=== PATIENT | male | born 1975 | race American Indian/Alaskan Native ===

== ENCOUNTER 2021-06-11 05:10 | Observation (INO) | payer SELFPAY ==
--- NOTE | 2021-06-11 05:51 | XRay Report ---
CHEST 1 VIEW INDICATION: chest pain. COMPARISON: None. FINDINGS: Support devices: None. Heart: Normal. Lungs/Pleura: No acute pulmonary or pleural findings. IMPRESSION: 1. No acute findings. Signer Name: Osvaldo Roach MD Signed: 06/11/2021 5:46 AM Workstation Name: [id number]
--- NOTE | 2021-06-11 06:13 | Event Note ---
ED Screening Note Date of service: 06/11/21 Time: 05:25 ED Screening Note: Patient is a 45-year-old -[place] male with a history of tobacco abuse who presents to the ED with left-sided chest pain that radiates to the left arm for the last 3 hours. Patient states that he was laying on the couch when he started having the symptoms and that the symptoms have been persistent and intermittent. Patient denies dizziness, syncope, shortness of breath, fall, traumatic injury, heavy lifting, nausea and vomiting, abdominal pain, neck pain, lightheadedness, headache, cough or fever and chills. This initial assessment/diagnostic orders/clinical plan/treatment(s) is/are subject to change based on patients health status, clinical progression and re- assessment by fellow clinical providers in the ED. Further treatment and workup at subsequent clinical providers discretion. Patient/guardian urged not to elope from the ED as their condition may be serious if not clinically assessed and managed. Initial orders include: CBC, CMP, troponin, EKG, chest x-ray
[2021-06-11 06:43] LABS: Basophils % (Auto) 0.5 % (0.0-1.8); Eosinophils # (Auto) 0.1 K/mm3 (0.0-0.4); Eosinophils % (Auto) 0.7 % (0.0-4.3); Hematocrit 44.1 % (35.5-45.6); Hemoglobin 14.9 gm/dl (11.8-15.2); Lymphocytes # (Auto) 2.7 K/mm3 (1.2-5.4); Lymphocytes % (Auto) 27.6 % (13.4-35.0); Mean Corpuscular HGB Conc 34 % (32-34); Mean Corpuscular Volume 98 fl (84-94); Monocytes # (Auto) 0.8 K/mm3 (0.0-0.8); Monocytes % (Auto) 8.3 % (0.0-7.3); Platelet Count 301 K/mm3 (140-440); Red Blood Count 4.51 M/mm3 (3.65-5.03); Red Cell Distribution Width 15.9 % (13.2-15.2)
[2021-06-11 06:50] LABS: Alanine Aminotransferase 19 units/L (7-56); Albumin 4.4 g/dL (3.9-5); BUN/Creatinine Ratio 11; Blood Urea Nitrogen 16 mg/dL (9-20); Calcium 9.3 mg/dL (8.4-10.2); Hemolysis Index 1
[2021-06-11] MEDS ORDERED: SODIUM CHLORIDE 0.9% 500 ML 500 ML IV ONE ×2 (07:07→10:36)
[2021-06-11] MEDS ORDERED: NITROGLYCERIN 0.4 MG TAB SUBL SL ONE ×2 (07:07→10:37)
[2021-06-11] MEDS ORDERED: hydrALAZINE 20 MG/1 ML INJ IV ONE ×2 (07:17→10:37)
--- NOTE | 2021-06-11 07:17 | Emergency Department Report ---
ED General Adult HPI - General Chief complaint: Dyspnea/Respdistress Stated complaint: Chest pain, left arm numbness PUI?: No Time Seen by Provider: 06/11/21 06:30 Source: patient, RN notes reviewed Mode of arrival: Ambulatory Limitations: No Limitations - History of Present Illness Initial comments: The patient was evaluated in the emergency department for symptoms described in the history of present illness. He/she was evaluated in the context of the global COVID-19 pandemic, which necessitated consideration that the patient might be at risk for infection with the virus that causes COVID-19. Institutional protocols and algorithms that pertain to the evaluation of patients at risk for COVID-19 are in a state of rapid change based on information released by regulatory bodies including the CDC and federal and state organizations. These policies and algorithms were followed during the patient's care in the emergency department. Please note that these policies, procedures and recommendations changed on a rapid basis. The patient is a 45-year-old gentleman who is not known to myself previously. He does not have a primary care doctor. He smokes tobacco, black in miles, but does not know if he has any chronic medical conditions. He presents to the ER today with complaint of left-sided chest pressure which moved to his left upper extremity. He also describes nausea, shortness of breath, and left upper ext remity numbness. He denies weakness. This is now resolved. Patient currently denies headache, neck pain, thoracic pain, abdominal pain, lower back pain, focal extremity weakness. He denies Covid symptomatology. He reports that he is up-to-date with COVID-19 vaccinations. No travel, surgery, immobilization, leg pain or leg swelling. No pertinent family history that he is aware of. Has not taken aspirin recently. Does not have a formal history of hypertension that he is aware of. -: Sudden, hour(s) Location: chest Radiation: extremity Quality: aching Consistency: now resolved Improves with: none Worsens with: none - Related Data Allergies Allergy/AdvReac Type Severity Reaction Status Date / Time No Known Allergies Allergy Unverified 06/11/21 10:31 ED Review of Systems ROS: Stated complaint: CHEST TIGHTNESS Other details as noted in HPI Constitutional: denies: fever Eyes: denies: eye discharge ENT: denies: epistaxis Respiratory: shortness of breath Cardiovascular: chest pain Gastrointestinal: nausea. denies: abdominal pain Genitourinary: denies: dysuria Musculoskeletal: denies: back pain Neurological: numbness. denies: weakness Hematological/Lymphatic: denies: easy bleeding ED Physical Exam - General Limitations: No Limitations General appearance: alert, in no apparent distress - Head Head exam: Present: atraumatic, normocephalic - Eye Eye exam: Present: normal appearance, EOMI. Absent: nystagmus - ENT ENT exam: Present: normal exam, normal orophraynx, mucous membranes moist, normal external ear exam - Neck Neck exam: Present: normal inspection, full ROM. Absent: tenderness, meningismus - Respiratory Respiratory exam: Present: normal lung sounds bilaterally. Absent: respiratory distress, wheezes, rales, rhonchi, stridor - Cardiovascular Cardiovascular Exam: Present: regular rate, normal rhythm, systolic murmur (Prom inent systolic click.). Absent: bradycardia, tachycardia, irregular rhythm, diastolic murmur, rubs, gallop - GI/Abdominal GI/Abdominal exam: Present: soft. Absent: distended, tenderness, guarding, rebound, rigid, pulsatile mass - Rectal Rectal exam: Present: deferred - Extremities Exam Extremities exam: Present: normal inspection, full ROM, other (2+ pulses noted in the bilateral upper and lower extremities. There is no palpable cord. negative Homans sign. Muscular compartments are soft. The pelvis is stable.). Absent: pedal edema, calf tenderness - Back Exam Back exam: Present: normal inspection. Absent: tenderness, CVA tenderness (R), CVA tenderness (L), paraspinal tenderness, vertebral tenderness - Neurological Exam Neurological exam: Present: alert, oriented X3, other (No facial droop. Tongue midline. Extraocular movements intact bilaterally. Facial sensation intact to light touch in V1, V2, V3 distribution bilaterally. 5 and a 5 strength in 4 extremities. Sensation intact to light touch in 4 extremities.). Absent: motor sensory deficit - Psychiatric Psychiatric exam: Present: normal affect, normal mood - Skin Skin exam: Present: warm, dry, intact, normal color. Absent: rash ED Course Vital Signs 06/11/21 06/11/21 06/11/21 05:15 10:35 13:24 Temperature 97.9 F Pulse Rate 67 73 Respiratory 19 18 Rate Blood Pressure 192/111 Blood Pressure 184/122 [Right] O2 Sat by Pulse 98 98 100 Oximetry 06/11/21 06/11/21 06/11/21 13:31 14:31 14:41 Temperature Pulse Rate 100 H 62 60 Respiratory 16 22 20 Rate Blood Pressure 154/92 154/92 Blood Pressure 157/80 [Right] O2 Sat by Pulse 100 100 99 Oximetry 06/11/21 06/11/21 06/11/21 14:51 15:01 15:11 Temperature Pulse Rate 62 64 70 Respiratory 17 16 16 Rate Blood Pressure 154/92 150/79 150/79 Blood Pressure [Right] O2 Sat by Pulse 99 100 100 Oximetry 06/11/21 06/11/21 06/11/21 15:21 15:31 15:41 Temperature Pulse Rate 92 H 59 L 83 Respiratory 15 15 14 Rate Blood Pressure 150/79 161/77 161/77 Blood Pressure [Right] O2 Sat by Pulse 100 99 100 Oximetry 06/11/21 06/11/21 06/11/21 15:51 16:01 16:11 Temperature Pulse Rate 62 56 L 59 L Respiratory 18 9 L 17 Rate Blood Pressure 160/89 160/89 160/89 Blood Pressure [Right] O2 Sat by Pulse 99 100 98 Oximetry 06/11/21 06/11/21 06/11/21 16:21 16:31 16:41 Temperature Pulse Rate 62 87 57 L Respiratory 21 11 L 18 Rate Blood Pressure 160/89 149/78 149/78 Blood Pressure [Right] O2 Sat by Pulse 97 100 100 Oximetry 06/11/21 06/11/21 06/11/21 16:51 17:01 17:11 Temperature Pulse Rate 60 76 61 Respiratory 20 19 17 Rate Blood Pressure 149/78 173/97 173/97 Blood Pressure [Right] O2 Sat by Pulse 99 99 100 Oximetry 06/11/21 06/11/21 06/11/21 17:21 17:31 17:41 Temperature Pulse Rate 108 H 59 L 59 L Respiratory 15 21 21 Rate Blood Pressure 173/97 172/93 172/93 Blood Pressure [Right] O2 Sat by Pulse 99 99 97 Oximetry 06/11/21 06/11/21 06/11/21 17:51 18:01 18:08 Temperature Pulse Rate 58 L 98 H 98 H Respiratory 12 15 16 Rate Blood Pressure 172/93 156/123 Blood Pressure 151/70 [Right] O2 Sat by Pulse 100 100 100 Oximetry 06/11/21 06/11/21 06/11/21 18:11 18:21 18:31 Temperature Pulse Rate 103 H 73 57 L Respiratory 13 20 12 Rate Blood Pressure 151/70 151/70 139/73 Blood Pressure [Right] O2 Sat by Pulse 100 100 100 Oximetry 06/11/21 06/11/21 06/11/21 18:41 18:51 19:01 Temperature Pulse Rate 109 H 59 L 61 Respiratory 13 16 20 Rate Blood Pressure 139/73 139/73 163/103 Blood Pressure [Right] O2 Sat by Pulse 100 98 98 Oximetry 06/11/21 06/11/21 06/11/21 19:11 19:21 19:31 Temperature Pulse Rate 57 L 98 H 61 Respiratory 21 19 22 Rate Blood Pressure 139/73 139/73 161/84 Blood Pressure [Right] O2 Sat by Pulse 100 98 98 Oximetry 06/11/21 06/11/21 06/11/21 19:41 19:51 20:00 Temperature Pulse Rate 85 60 99 H Respiratory 11 L 19 16 Rate Blood Pressure 163/103 163/103 Blood Pressure 178/91 [Right] O2 Sat by Pulse 100 99 99 Oximetry 06/11/21 06/11/21 06/11/21 20:01 20:11 20:21 Temperature Pulse Rate 59 L 94 H 94 H Respiratory 19 19 14 Rate Blood Pressure 160/80 160/80 160/80 Blood Pressure [Right] O2 Sat by Pulse 98 98 99 Oximetry 06/11/21 06/11/21 06/11/21 20:31 20:41 20:51 Temperature Pulse Rate 68 59 L 59 L Respiratory 11 L 20 19 Rate Blood Pressure 167/94 167/94 167/94 Blood Pressure [Right] O2 Sat by Pulse 100 97 99 Oximetry 06/11/21 06/11/21 06/11/21 21:01 21:10 21:21 Temperature Pulse Rate 77 58 L 57 L Respiratory 19 18 20 Rate Blood Pressure 178/94 178/94 178/94 Blood Pressure [Right] O2 Sat by Pulse 98 99 99 Oximetry 06/11/21 06/11/21 06/11/21 21:31 21:41 21:51 Temperature Pulse Rate 62 61 62 Respiratory 16 22 21 Rate Blood Pressure 157/78 178/94 157/78 Blood Pressure [Right] O2 Sat by Pulse 96 98 98 Oximetry 06/11/21 06/11/21 06/11/21 22:00 22:01 22:07 Temperature Pulse Rate 62 99 H Respiratory 22 Rate Blood Pressure 174/96 178/91 Blood Pressure [Right] O2 Sat by Pulse 100 98 Oximetry 06/11/21 06/11/21 06/11/21 22:11 22:21 22:31 Temperature Pulse Rate 97 H 74 77 Respiratory 17 12 14 Rate Blood Pressure 174/96 178/91 160/96 Blood Pressure [Right] O2 Sat by Pulse 100 100 100 Oximetry 06/11/21 06/12/21 06/12/21 23:37 02:00 03:52 Temperature 98.4 F 98.7 F Pulse Rate 69 69 60 Respiratory 17 18 Rate Blood Pressure 162/101 150/82 Blood Pressure [Right] O2 Sat by Pulse 97 98 Oximetry 06/12/21 04:03 Temperature Pulse Rate Respiratory 20 Rate Blood Pressure Blood Pressure [Right] O2 Sat by Pulse Oximetry - Reevaluation(s) Reevaluation #1: 06/11/21 07:16 Differential diagnosis, including but not limited to: GERD, gastritis, hiatal hernia, pneumonia, TIA, aortic disease, coronary artery disease Assessment and plan: 45-year-old gentleman, who is not currently tachycardic, tachypneic or hypoxic, who denies DVT and pulmonary embolism risk factors, who is low risk by Wells criteria for pulmonary embolism, who is PERC negative, who is moderate risk for major adverse cardiac event as per heart score, with chest pain, left arm numbness which is now resolved, and prominent systolic click. He has a GCS of 15, and an NIH score of 0 at this time. Treat patient's pain, obt ain CT scan of the brain, and CT angiogram head and neck to evaluate aortic arch, and proximal aortic arterial anatomy. Have recommended admission to the medical service for cardiac risk ratification as well as TIA evaluation. Patient states he is amenable to further diagnostic work-up, but he is uncertain if he would like to be admitted. He currently presents as awake, alert, oriented, sober, of sound mind, and exhibits decision-making capacity. Reassess after CT scan has resulted. 06/11/21 10:14 CT head, CT angiogram head and neck negative for acute findings. Patient feels improved. His repeat neurologic examination is unchanged. He is agreeable to admission for cardiac risk ratification, and TIA work-up/evaluation. Seen, Dr. Hernandez to admit patient to the medical service. - Consultations Consultation #1: 06/11/21 11:54 Discussed history, physical, laboratory studies, imaging studies and overall plan of care with cardiology on-call, Dr. Aguilar His group will follow in consultation. We specifically discussed initiation of Plavix, and systemic anticoagulation, however, the patient is chest pain-free at this time. It is recommended that we not initiate Plavix for systemic anticoagulation at this time, cardiology will follow in consultation and make further recommendations. ED Medical Decision Making - Lab Data Result diagrams: 06/12/21 05:12 06/12/21 05:12 Vital Signs 06/11/21 05:15 Temperature 97.9 F Pulse Rate 67 Respiratory 19 Rate Blood Pressure 192/111 O2 Sat by Pulse 98 Oximetry Lab Results 06/11/21 06/11/21 Range/Units 06:00 06:00 WBC 9.9 (4.5-11.0) K/mm3 RBC 4.51 (3.65-5.03) M/mm3 Hgb 14.9 (11.8-15.2) gm/dl Hct 44.1 (35.5-45.6) % MCV 98 H (84-94) fl MCH 33 H (28-32) pg MCHC 34 (32-34) % RDW 15.9 H (13.2-15.2) % Plt Count 301 (140-440) K/mm3 Lymph % (Auto) 27.6 (13.4-35.0) % [place] % (Auto) 8.3 H (0.0-7.3) % Eos % (Auto) 0.7 (0.0-4.3) % Baso % (Auto) 0.5 (0.0-1.8) % Lymph # (Auto) 2.7 (1.2-5.4) K/mm3 [place] # (Auto) 0.8 (0.0-0.8) K/mm3 Eos # (Auto) 0.1 (0.0-0.4) K/mm3 Baso # (Auto) 0.0 (0.0-0.1) K/mm3 Seg Neutrophils % 62.9 (40.0-70.0) % Seg Neutrophils # 6.2 (1.8-7.7) K/mm3 Sodium 143 (137-145) mmol/L Potassium 4.0 (3.6-5.0) mmol/L Chloride 104.8 (98-107) mmol/L Carbon Dioxide 29 (22-30) mmol/L Anion Gap 13 mmol/L BUN 16 (9-20) mg/dL Creatinine 1.5 H (0.8-1.3) mg/dL Estimated GFR > 60 ml/min BUN/Creatinine Ratio 11 % Glucose 124 H (75-100) mg/dL Calcium 9.3 (8.4-10.2) mg/dL Total Bilirubin < 0.20 (0.1-1.2) mg/dL AST 19 (5-40) units/L ALT 19 (7-56) units/L Alkaline Phosphatase 153 H (35-129) units/L Troponin T < 0.010 (0.00-0.029) ng/mL Total Protein 7.1 (6.3-8.2) g/dL Albumin 4.4 (3.9-5) g/dL Albumin/Globulin Ratio 1.6 % - EKG Data -: EKG Interpreted by Al EKG shows normal: sinus rhythm - EKG Data When compared to previous EKG there are: previous EKG unavailable 06/11/21 07:15 EKG interpreted at 05: 30 7 AM Sinus rhythm, 68 bpm. Normal axis, normal intervals, high left ventricular voltage. Abnormal EKG. Not a STEMI. - Radiology Data Radiology results: pending, report reviewed, image reviewed CHEST 1 VIEW INDICATION: chest pain. COMPARISON: None. FINDINGS: Support devices: None. Heart: Normal. Lungs/Pleura: No acute pulmonary or pleural findings. IMPRESSION: 1. No acute findings. Signer Name: Osvaldo Roach MD Signed: 06/11/2021 4:46 AM Workstation Name: [id number] INDICATION: left arm numbness. TECHNIQUE: Routine CT head without contrast. Sagittal and coronal reformatted images were obtained. All CT scans at this location are performed using CT dose reduction for ALARA by means of automated exposure control. COMPARISON: None. FINDINGS: BRAIN / INTRACRANIAL CONTENTS: Hemorrhage:No intracranial hemorrhage; no subarachnoid hemorrhage Stroke mimics: No subdural or epidural hematoma or space taking lesion Acute/subacute territorial infarction: Sterling-white matter interface: No blurring; normal Insular cortex: Normal Basal ganglia: Normal Wedge shaped parenchymal low density area: Not present Cortical sulci: Not effaced Lacunar infarctions: No acute lacunae Vasculopathy: Dense middle cerebral artery sign: Bilateral left middle cerebral artery has increased attenuation, in this CTA, both middle cerebral arteries are patent and normal Internal carotid artery terminus: Normal Basilar artery:Normal Middle cerebral artery branches in the sylvian fissure (Dot sign): Branches of the middle cerebral artery appear normal in the CTA Calcified embolus: Not present ASPECT score: 10 Chronic lesions:None White matter: Craniocervical junction:No significant abnormality Orbits:No significant abnormality Paranasal sinuses/mastoids:No significant abnormality Additional findings: None IMPRESSION: No acute subacute infarction This exam was performed as part of a code stroke protocol. The exam was completed at [facility] on 06/11/2021 8:04 AM. The exam was reviewed at 8:14 AM and ER physician was notified at . Signer Name: Deandra Vuong MD Signed: 06/11/2021 8:16 AM Workstation Name: [id number] CTA NECK WITH CONTRAST HISTORY: Left arm numbness COMPARISON: None. TECHNIQUE: Routine CTA of the neck was performed. 3-D/MIP reformats were postprocessed. Percentage stenosis is determined by direct quantitative measurements of diseased internal carotid artery diameter compared with normal distal internal carotid artery reference segments or by criteria similar to NASCET where applicable.All CT scans at this location are performed using CT dose reduction for ALARA by means of automated exposure control CONTRAST: 100 ml of Omnipaque 370 FINDINGS: Aortic arch: Aortic arch and left common carotid artery normal arising from the aorta; no artifactual due to venous contamination obscuring the details, proximal innominate artery left common carotid artery appear normal. Cervical vertebral arteries: Right vertebral artery normal from its origin up to intradural segment; left vertebral origin is not seen well (due to venous contamination) right the rest of the left vertebral artery is normal. Common carotid arteries: No significant abnormality. Carotid bifurcations: Normal Cervical internal carotid arteries: No significant abnormality. Additional findings: None. IMPRESSION: 1. No significant abnormality. Signer Name: Deandra Vuong MD Signed: 06/11/2021 8:28 AM Workstation Name: [id number] CTA HEAD WITH CONTRAST HISTORY: Left arm numbness COMPARISON: None. TECHNIQUE: Routine non-contrast CT Head, CTA of the head and post-contrast CT Head are performed. 3-D/MIP reformats postprocessed. All CT scans at this location are performed using CT dose reduction for ALARA by means of automated exposure control CONTRAST: 100 ml of Omnipaque 370 FINDINGS: CTA Head: Intracranial vertebral arteries: Right vertebral artery is the dominant artery and continues as basilar artery; left vertebral artery ends in the left PICA Basilar artery: No significant abnormality. Posterior cerebral arteries: No significant abnormality. Intracranial internal carotid arteries: No significant abnormality. Internal carotid artery is slightly larger than the right side the right internal carotid artery is patent from skull base to terminus Anterior cerebral arteries: The A1 segment supplies both A2 segments; right T1 segment is hypoplastic Middle cerebral arteries: No significant abnormality. Dural venous sinuses:Not optimally opacified. No significant abnormality. Additional findings: None. IMPRESSION: 1. No significant abnormality. Signer Name: Deandra Vuong MD Signed: 06/11/2021 8:35 AM Workstation Name: [id number] Critical care attestation.: If time is entered above; I have spent that time in minutes in the direct care of this critically ill patient, excluding procedure time. ED Disposition Clinical Impression: Acute chest pain, Left arm numbness, Elevated blood pressure reading Disposition: ADMITTED INPATIENT Is pt being admited?: Yes Does the pt Need Aspirin: No Condition: Good Heart Score - HEART Score History: Moderately suspicious EKG: Non-specific Age: 45-65 Risk factors: 1-2 risk factors (Tobacco use, hypertension) Troponin: 1-3x normal limit HEART Score: 5 - EKG Read Time Time EKG Completed: 05:37 EKG Read Time: 05:37 - Critical Actions Critical Actions: 4-6 pts:12-16.6% risk of adverse cardiac event. Should be admitted - Assessment Assessment Interval: Baseline - Level of Consciousness 1a. Level of Consciousness: alert/keenly responsive - LOC Questions 1b. LOC Questions: answers both correctly - LOC Command 1c. LOC Commands: performs tasks correctly - Best Gaze 2. Best Gaze: normal - Visual 3. Visual: no visual loss - Facial Palsy 4. Facial Palsy: normal symmetrical movement - Motor Arm 5a. Motor Arm Left: no drift 5b. Motor Arm Right: no drift - Motor Leg 6a. Motor Leg Left: no drift 6b. Motor Leg Right: no drift - Limb Ataxia 7. Limb Ataxia: absent - Sensory 8. Sensory: normal - Best Language 9. Best Language: no aphasia - Dysarthria 10. Dysarthria: normal - Extinction and Inattention 11. Extinction/Inattention: no abnormality - Scoring Total Score: 0 Stroke Severity: No Stroke Symptoms
--- NOTE | 2021-06-11 09:20 | Cat Scan Report ---
NONENHANCED CT SCAN OF THE BRAIN: INDICATION: left arm numbness. TECHNIQUE: Routine CT head without contrast. Sagittal and coronal reformatted images were obtained. A ll CT scans at this location are performed using CT dose reduction for ALARA by means of automated ex posure control. COMPARISON: None. FINDINGS: BRAIN / INTRACRANIAL CONTENTS: Hemorrhage:No intracranial hemorrhage; no subarachnoid hemorrhage Stroke mimics: No subdural or epidural hematoma or space taking lesion Acute/subacute territorial infarction: Sterling-white matter interface: No blurring; normal Insular cortex: Normal Basal ganglia: Normal Wedge shaped parenchymal low density area: Not present Cortical sulci: Not effaced Lacunar infarctions: No acute lacunae Vasculopathy: Dense middle cerebral artery sign: Bilateral left middle cerebral artery has increased attenuation , in this CTA, both middle cerebral arteries are patent and normal Internal carotid artery terminus: Normal Basilar artery:Normal Middle cerebral artery branches in the sylvian fissure (Dot sign): Branches of the middle cerebral artery appear normal in the CTA Calcified embolus: Not present ASPECT score: 10 Chronic lesions:None White matter: Craniocervical junction:No significant abnormality Orbits:No significant abnormality Paranasal sinuses/mastoids:No significant abnormality Additional findings: None IMPRESSION: No acute subacute infarction This exam was performed as part of a code stroke protocol. The exam was completed at [facility] on 06/11/2021 8:04 AM. The exam was reviewed at 8:14 AM and ER physician was notified at . Signer Name: Deandra Vuong MD Signed: 06/11/2021 9:16 AM Workstation Name: [id number]
--- NOTE | 2021-06-11 09:33 | Cat Scan Report ---
CTA NECK WITH CONTRAST HISTORY: Left arm numbness COMPARISON: None. TECHNIQUE: Routine CTA of the neck was performed. 3-D/MIP reformats were postprocessed. Percentage s tenosis is determined by direct quantitative measurements of diseased internal carotid artery diamete r compared with normal distal internal carotid artery reference segments or by criteria similar to NA SCET where applicable.All CT scans at this location are performed using CT dose reduction for ALARA b y means of automated exposure control CONTRAST: 100 ml of Omnipaque 370 FINDINGS: Aortic arch: Aortic arch and left common carotid artery normal arising from the aorta; no artifactual due to venous contamination obscuring the details, proximal innominate artery left common carotid ar cary appear normal. Cervical vertebral arteries: Right vertebral artery normal from its origin up to intradural segment; left vertebral origin is not seen well (due to venous contamination) right the rest of the left verte bral artery is normal. Common carotid arteries: No significant abnormality. Carotid bifurcations: Normal Cervical internal carotid arteries: No significant abnormality. Additional findings: None. IMPRESSION: 1. No significant abnormality. Signer Name: Deandra Vuong MD Signed: 06/11/2021 9:28 AM Workstation Name: [id number]
--- NOTE | 2021-06-11 09:40 | Cat Scan Report ---
CTA HEAD WITH CONTRAST HISTORY: Left arm numbness COMPARISON: None. TECHNIQUE: Routine non-contrast CT Head, CTA of the head and post-contrast CT Head are performed. 3-D /MIP reformats postprocessed. All CT scans at this location are performed using CT dose reduction for ALARA by means of automated exposure control CONTRAST: 100 ml of Omnipaque 370 FINDINGS: CTA Head: Intracranial vertebral arteries: Right vertebral artery is the dominant artery and continues as basil ar artery; left vertebral artery ends in the left PICA Basilar artery: No significant abnormality. Posterior cerebral arteries: No significant abnormality. Intracranial internal carotid arteries: No significant abnormality. Internal carotid artery is slight ly larger than the right side the right internal carotid artery is patent from skull base to terminus Anterior cerebral arteries: The A1 segment supplies both A2 segments; right T1 segment is hypoplastic Middle cerebral arteries: No significant abnormality. Dural venous sinuses:Not optimally opacified. No significant abnormality. Additional findings: None. IMPRESSION: 1. No significant abnormality. Signer Name: Deandra Vuong MD Signed: 06/11/2021 9:35 AM Workstation Name: [id number]
[2021-06-11] MEDS ORDERED: ASPIRIN 81 MG TAB CHEW PO ONE ×2 (10:38→11:00)
[2021-06-11 11:11] LABS: Chol/HDL Ratio 5.63 %
--- NOTE | 2021-06-11 11:55 | Consultation ---
History of Present Illness Consult date: 06/11/21 Requesting physician: MARVA MOBLEY Consult reason: other (NSTEMI) History of present illness: Pt is a 45-year-old AA male, previously unknown to our practice, who presented with complaints of left-sided chest pressure that has been constant since this AM. Pain radiates to his left arm. Pt also reports left arm numbness. Chest pain associated with diaphoresis and SOB. Pt admits to smoking 2-3 cigars per day. He denies EtOH abuse or illicit drug use. Pt denies any past medical hx and does not take any medications or supplements. He is not currently established with a PCP. No prior cardiac workup available for review. Initial troponin was negative. 2nd troponin noted to be mildly elevated at 0.084. ECG reveals sinus rhythm with LVH, no acute ischemic changes. CXR reveals no acute findings. Of note, BP markedly elevated upon arrival (192/111 mmHg). Labs at admission also reveal acute kidney injury, with Cr of 1.6. Past History Past Medical History: No medical history Past Surgical History: No surgical history Social history: , lives with family, smoking (2-3 cigars/daily). denies: alcohol abuse Family history: hypertension Medications and Allergies Allergies Allergy/AdvReac Type Severity Reaction Status Date / Time No Known Allergies Allergy Unverified 06/11/21 10:31 Review of Systems Constitutional: sweats, no fever, no chills Ears, nose, mouth and throat: no nasal congestion, no sore throat Cardiovascular: chest pain, shortness of breath, no palpitations, no edema, no syncope, no lightheadedness, no claudication Respiratory: shortness of breath, no cough Gastrointestinal: no abdominal pain, no nausea, no vomiting Genitourinary Male: no dysuria Musculoskeletal: no neck stiffness, no neck pain Integumentary: no rash, no wounds Neurological: numbness (LLE), no head injury, no paralysis, no weakness, no tingling, no seizures, no syncope, no vertigo, no headaches Endocrine: no cold intolerance, no heat intolerance Hematologic/Lymphatic: no easy bruising, no easy bleeding Allergic/Immunologic: no anaphylaxis Physical Examination Last Vital Signs Temp 97.9 F 06/11/21 05:15 Pulse 100 H 06/11/21 13:31 Resp 16 06/11/21 13:31 BP 157/80 09/06/21 13:31 Pulse Ox 100 06/11/21 13:31 General appearance: no acute distress HEENT: Positive: EOMI, Normocephaly Neck: Positive: neck supple, trachea midline. Negative: JVD/HJR Cardiac: Positive: Reg Rate and Rhythm, S1/S2 Lungs: Positive: clear to auscultation Neuro: Positive: Grossly Intact Abdomen: Positive: Soft. Negative: Tender Skin: Negative: Rash Musculoskeletal: No Pain Extremities: Present: lower extr. pulses. Absent: edema Results 06/11/21 06:00 06/11/21 06:00 Cardiac Enzymes 06/11/21 Range/Units 06:00 AST 19 (5-40) units/L Lipids 06/11/21 Range/Units 09:15 Triglycerides 104 (2-149) mg/dL Cholesterol 259 H (50-199) mg/dL HDL Cholesterol 46 (40-59) mg/dL Cholesterol/HDL Ratio 5.63 % CBC 06/11/21 Range/Units 06:00 WBC 9.9 (4.5-11.0) K/mm3 RBC 4.51 (3.65-5.03) M/mm3 Hgb 14.9 (11.8-15.2) gm/dl Hct 44.1 (35.5-45.6) % Plt Count 301 (140-440) K/mm3 Lymph # (Auto) 2.7 (1.2-5.4) K/mm3 Gray # (Auto) 0.8 (0.0-0.8) K/mm3 Eos # (Auto) 0.1 (0.0-0.4) K/mm3 Baso # (Auto) 0.0 (0.0-0.1) K/mm3 Comprehensive Metabolic Panel 06/11/21 Range/Units 06:00 Sodium 143 (137-145) mmol/L Potassium 4.0 (3.6-5.0) mmol/L Chloride 104.8 (98-107) mmol/L Carbon Dioxide 29 (22-30) mmol/L BUN 16 (9-20) mg/dL Creatinine 1.5 H (0.8-1.3) mg/dL Glucose 124 H (75-100) mg/dL Calcium 9.3 (8.4-10.2) mg/dL AST 19 (5-40) units/L ALT 19 (7-56) units/L Alkaline Phosphatase 153 H (35-129) units/L Total Protein 7.1 (6.3-8.2) g/dL Albumin 4.4 (3.9-5) g/dL - Imaging and Cardiology Echo: pending EKG: report reviewed, image reviewed - EKG Interpretation EKG: no acute changes EKG interpretations - EKG Sinus rhythms and dysrhythmias: sinus rhythm Chamber hypertrophy or enlargement: left ventricular hypertro Assessment and Plan Obtain echo. Cardiac enzymes noted to be trending up. Initiate IV heparin gtt. Plan for LHC in AM. NPO after midnight. Start daily ASA, high-intensity statin, and PO Lopressor 50mg BID. Will optimize antihypertensive regimen as needed. Smoking cessation encouraged. Pt seen in conjunction with Dr. Aguilar, who agrees with the assessment and plan of care. - Patient Problems (1) Chest pain Current Visit: Yes Status: Acute (2) Left arm numbness Current Visit: Yes Status: Acute (3) NSTEMI (non-ST elevated myocardial infarction) Current Visit: Yes Status: Acute (4) Hypertensive urgency Current Visit: Yes Status: Acute (5) NATACHA (acute kidney injury) Current Visit: Yes Status: Acute (6) Tobacco abuse Current Visit: Yes Status: Chronic (7) Obesity Current Visit: Yes Status: Chronic Qualifiers: Body mass index: BMI 35.0-35.9
--- NOTE | 2021-06-11 13:54 | Electrocardiograph Report ---
[facility] Test Date: 2021-06-11 Test Time: 05:30:06 Pat Name: ELIZA OCHOA Department: Room: [facility] Gender: M Activity Aide: PATRICIA : 1975 Requested By: FORTUNATO ZAVALA Order Number: [id number] Reading MD: Carlos Aguilar Measurements Intervals [place] Rate: 68 P: 54 AL: 162 QRS: 60 QRSD: 104 T: 1 QT: 398 QTc: 423 Interpretive Statements Sinus rhythm Probable left atrial enlargement Left ventricular hypertrophy No previous ECG available for comparison Electronically Signed On 06-11-2021 13:54:41 EDT by Carlos Aguilar
[2021-06-11] MEDS ORDERED: HEPARIN 10,000 UNITS/10 ML VIAL IV PRN (17:42)
[2021-06-11] MEDS ORDERED: HEPARIN/ 0.45% NACL DRIP 25,000 UNIT/500 ML BAG IV SCH (18:00)
[2021-06-11] MEDS ORDERED: HEPARIN 10,000 UNITS/10 ML VIAL IV ONE (18:00)
[2021-06-11] MEDS ORDERED: SODIUM CHLORIDE 0.9% 500 ML 500 ML IV SCH (18:00)
[2021-06-11 18:22] LABS: Hematocrit 43.2 % (35.5-45.6); Hemoglobin 14.5 gm/dl (11.8-15.2)
[2021-06-11 18:33] LABS: INR 0.94 (0.87-1.13)
[2021-06-11 18:40] LABS: Partial Thromboplastin Time 119.2 Sec. (24.2-36.6)
[2021-06-11] MEDS: METOPROLOL TARTRATE 50 MG TAB PO SCH (22:07)
[2021-06-12] MEDS ORDERED: MORPHINE 2 MG/1 ML INJ IV ONE (03:33)
[2021-06-12 06:18] LABS: Basophils % (Auto) 0.3 % (0.0-1.8); Eosinophils % (Auto) 0.1 % (0.0-4.3); Hematocrit 44.6 % (35.5-45.6); Lymphocytes # (Auto) 2.8 K/mm3 (1.2-5.4); Mean Corpuscular HGB Conc 34 % (32-34); Mean Corpuscular Volume 96 fl (84-94); Monocytes # (Auto) 0.9 K/mm3 (0.0-0.8); Platelet Count 319 K/mm3 (140-440); Red Blood Count 4.63 M/mm3 (3.65-5.03); Red Cell Distribution Width 15.9 % (13.2-15.2)
[2021-06-12 06:22] LABS: BUN/Creatinine Ratio 7; Blood Urea Nitrogen 8 mg/dL (9-20); Calcium 9.7 mg/dL (8.4-10.2); Hemolysis Index 19
[2021-06-12 06:27] LABS: INR 0.92 (0.87-1.13)
[2021-06-12] MEDS ORDERED: SODIUM CHLORIDE 0.9% 500 ML 500 ML IV NR (07:49)
[2021-06-12] MEDS ORDERED: ASPIRIN 81 MG TAB CHEW ONE (07:54)
[2021-06-12] MEDS: ASPIRIN 81 MG TAB CHEW PO SCH ×2 (07:58→10:11)
[2021-06-12] MEDS ORDERED: MIDAZOLAM 2 MG/2 ML INJ ONE (08:21)
[2021-06-12] MEDS ORDERED: HEPARIN/NS 5000 UNIT/500ML 1,000 ML IR ONE (08:21)
[2021-06-12] MEDS ORDERED: NITROGLYCERIN SYRINGE 3 ML ONE (08:22)
[2021-06-12] MEDS ORDERED: LIDOCAINE (2%) 20 MG/1 ML VIAL 20 ML MDV INFILTRATI ONE (08:22)
[2021-06-12] MEDS: fentaNYL 100 MCG/2 ML INJ ONE ×2 (08:58→09:01)
[2021-06-12] MEDS: HEPARIN 10,000 UNITS/10 ML VIAL ONE ×2 (09:02→09:05)
[2021-06-12] MEDS: VERAPAMIL 5 MG/2 ML INJ ONE ×2 (09:05→09:20)
--- NOTE | 2021-06-12 09:41 | Cardiac Catherization Report ---
DATE OF SERVICE: 06/11/2021 INDICATIONS: The patient is a 45-year-old gentleman with no previous medical history, presented with chest pain and elevated blood pressure. The patient was noted to have significantly elevated blood pressure along with elevated troponin T enzymes consistent with a non-STEMI. Because of chest pain and elevated troponins, the patient is scheduled for diagnostic coronary angiography for definitive diagnosis and treatment. It is also to be noted the patient was noted to have elevated LDL in the range of 200 mg/dL, which was untreated. DESCRIPTION OF PROCEDURE: The patient was brought to the catheterization laboratory in a fasting condition. The patient was prepared in the usual standard fashion. The patient was evaluated for moderate sedation and was felt to be an appropriate candidate for moderate sedation. The patient was given sedation with IV Versed and fentanyl starting at 8:58 a.m. Monitored with pulse oximetry, EKG and hemodynamic monitoring. The patient was given local anesthesia in the right wrist area and a right radial artery puncture was made using 21-gauge arterial puncture needle. A 5-[place]ank[place] slender sheath was introduced. The patient received 5 mg of intra-arterial verapamil and 3000 units of intravenous heparin. With using 6-[place] multipurpose catheter, angiograms of the right coronary artery, left coronary artery were obtained in multiple views followed by angiograms of the left ventricle done in BARTH projection. Left ventricular pressures were obtained. Pressures were measured during the pullback. After obtaining a coronary angiographic pictures and left ventriculogram, catheter was removed. Good hemostasis was achieved with an application of radial band. The patient tolerated the procedure well. No untoward complications were noted. At the end of the procedure, the patient is communicating normally, breathing normally with no focal deficits. The patient's moderate sedation started at 8:58 a.m. and ended at 9:09 a.m. The patient was transferred to the room in stable condition. Following findings were noted. HEMODYNAMICS: Opening aortic pressure 141/79. Left ventricular pressure 141/11. No gradient across the aortic valve. Estimated ejection fraction is 55%. Right coronary artery dominant vessel arises normally from right coronary cusp. Minimal, less than 10% smooth irregularities were noted. Similarly, left coronary artery arises normally from left coronary cusp. Left main without significant disease. LAD and its branches are showing minimal irregularities, less than 10%. Circumflex artery without significant disease except for a very minute branch in the AV groove is subtotally occluded. This is very small caliber vessel. COLLATERALS: None. FINAL IMPRESSION: 1. Normal-sized left ventricle with normal contractility. Minimal coronary artery disease with minute branch in the AV groove subtotally occluded. Considering the above angiographic pictures, the patient will be continued on medical therapy. The patient was not on any treatment for his hypertension or hyperlipidemia, which appears to be maybe familial hypercholesterolemia. The patient will be on appropriate statins in addition to antihypertensive medications and aspirin. Procedure was uncomplicated. No untoward reactions noted from contrast dye. TID: [id number] RECEIPT: [id number] RENÉE/JOSE CARLOS HALL
[2021-06-12] MEDS ORDERED: ASPIRIN 325 MG TAB PO SCH (10:00)
[2021-06-12] MEDS: METOPROLOL TARTRATE 50 MG TAB PO SCH (10:11)
--- NOTE | 2021-06-12 10:37 | History and Physical Report ---
History of Present Illness Date of examination: 06/12/21 Date of admission: 06/11/21 10:15 Chief complaint: Chest pain History of present illness: Patient is 45 yo presented with chest pain yesterday. Chest pain was 7/10, radiated to left arm. Chest pain associated with diaphoresis. No shortness of breath. No fever. She was seen and evaluated in ED. Initial Troponin was normal but 2nd was high. He was diagnosed with acute NSTEMI, started on Aspirin. cardiology was consulted and evaluated patient. Past History Past Medical History: No medical history Past Surgical History: No surgical history Social history: , lives with family, smoking (2-3 cigars/daily). denies: alcohol abuse Family history: hypertension Medications and Allergies Allergies Allergy/AdvReac Type Severity Reaction Status Date / Time No Known Allergies Allergy Unverified 06/11/21 10:31 Home Medications Medication Instructions Recorded Confirmed Last Taken Type Aspirin [Aspirin BABY CHEW TAB] 81 mg PO QDAY #30 tab.chew 06/12/21 Unknown Rx AtorvaSTATin [Lipitor] 80 mg PO QHS #60 tablet 06/12/21 Unknown Rx Metoprolol [Lopressor TAB] 50 mg PO BID #60 tablet 06/12/21 Unknown Rx Active Meds: Active Medications Aspirin (Aspirin 81 Mg Tab Chew) 81 mg PO QDAY [facility] Last Admin: 06/12/21 10:11 Dose: Not Given Documented by: Atorvastatin Calcium (Atorvastatin 40 Mg Tab) 80 mg PO QHS [facility] Last Admin: 06/11/21 22:00 Dose: 80 mg Documented by: Heparin Sodium (Porcine) (Heparin 10,000 Units/10 Ml Vial) 3,900 unit 40 unit/kg (3900 unit) IV Q6H PRN PRN Reason: Anti-Xa Assay < 0.1 units/ml Metoprolol Tartrate (Metoprolol Tartrate 50 Mg Tab) 50 mg PO BID [facility] Last Admin: 06/12/21 10:11 Dose: 50 mg Documented by: Review of Systems All systems: negative (No fever, no abd pain, no urinary symptoms. All other systems reviewed and are negative) Exam - Physical Exam Narrative exam: Gen:Not in acute distress, lying in bed HEENT:Normocephalic, atraumatic Neck:supple, no JVD Lungs: clear to auscultation ,no wheeze Heart:S1 and S2 reg, no murmurs, rubs or gallop Abd:Soft, non tender, non distended, normal bowel sounds Ext:No edema. no clubbing, no cyanosis Neuro:Awake, alert, oriented x 3, moves all ext - Constitutional Vitals: Temp Pulse Resp BP Pulse Ox 98.2 F 74 12 128/92 94 06/12/21 08:00 06/12/21 08:00 06/12/21 08:00 06/12/21 08:00 06/12/21 08:00 HEART Score - HEART Score EKG: Non-specific Age: 45-65 Risk factors: 1-2 risk factors (Tobacco use, hypertension) Troponin: Troponin T 0.162 ng/mL (0.00-0.029) H* D 06/11/21 18:03 Troponin: 1-3x normal limit - Critical Actions Critical Actions: 4-6 pts:12-16.6% risk of adverse cardiac event. Should be admitted Results - Labs CBC & Chem 7: 06/12/21 05:12 06/12/21 05:12 Labs: Abnormal lab results 06/11/21 06/11/21 06/11/21 Range/Units 09:15 14:59 18:03 MCV (84-94) fl RDW (13.2-15.2) % Sharp % (Auto) (0.0-7.3) % Sharp # (Auto) (0.0-0.8) K/mm3 APTT (24.2-36.6) Sec. Heparin Anti-Xa Level (0.3-0.7) U.I./ml Potassium (3.6-5.0) mmol/L BUN (9-20) mg/dL Glucose (75-100) mg/dL Troponin T 0.084 H D 0.131 H* D 0.162 H* D (0.00-0.029) ng/mL Cholesterol 259 H (50-199) mg/dL LDL Cholesterol Direct 203 H (50-130) mg/dL 06/11/21 06/11/21 06/12/21 Range/Units 18:03 23:51 05:12 MCV 96 H (84-94) fl RDW 15.9 H (13.2-15.2) % Sharp % (Auto) 9.0 H (0.0-7.3) % Sharp # (Auto) 0.9 H (0.0-0.8) K/mm3 APTT 119.2 H* (24.2-36.6) Sec. Heparin Anti-Xa Level 0.10 L (0.3-0.7) U.I./ml Potassium (3.6-5.0) mmol/L BUN (9-20) mg/dL Glucose (75-100) mg/dL Troponin T (0.00-0.029) ng/mL Cholesterol (50-199) mg/dL LDL Cholesterol Direct (50-130) mg/dL 06/12/21 Range/Units 05:12 MCV (84-94) fl RDW (13.2-15.2) % Sharp % (Auto) (0.0-7.3) % Sharp # (Auto) (0.0-0.8) K/mm3 APTT (24.2-36.6) Sec. Heparin Anti-Xa Level (0.3-0.7) U.I./ml Potassium 3.5 L (3.6-5.0) mmol/L BUN 8 L (9-20) mg/dL Glucose 112 H (75-100) mg/dL Troponin T (0.00-0.029) ng/mL Cholesterol (50-199) mg/dL LDL Cholesterol Direct (50-130) mg/dL Assessment and Plan NSTEMI cardiac cath today Cardiology following Aspirin, Metoprolol,statin Hypertensive urgency BP improving NATACHA due to vasomotor nephropathy Now resolved Cr 1.1 today Hyperlipidemia Full code status
[2021-06-12] MEDS ORDERED: MORPHINE 4 MG/1 ML INJ IV PRN (10:39)
[2021-06-12] MEDS ORDERED: ACETAMINOPHEN 325 MG TAB PO PRN (10:39)
[2021-06-12] MEDS ORDERED: ONDANSETRON 4 MG/2 ML INJ IV PRN (10:39)
[2021-06-12] MEDS ORDERED: MORPHINE 2 MG/1 ML INJ IV PRN (10:39)
--- NOTE | 2021-06-12 13:34 | Progress Note ---
Assessment and Plan NSTEMI Chest pain Hypertensive Urgency * [facility] today showed minimal coronary disease * Continue daily ASA, high-intensity statin, and PO Lopressor 50mg BID. * Will optimize antihypertensive regimen as needed. * Smoking cessation encouraged. LHC showed minimal coronary disease. Patient is stable and ok to discharge from cardiac standpoint Patient should follow up with Dr. Aguilar, [facility], on 06/29/2021 at 12pm in our [place] office. Pt seen in conjunction with Dr. Aguilar, who agrees with the assessment and plan of care. Will see as needed - Patient Problems (1) NATACHA (acute kidney injury) Current Visit: Yes Status: Acute (2) Acute chest pain Current Visit: Yes Status: Acute (3) Hypertensive urgency Current Visit: Yes Status: Acute (4) NSTEMI (non-ST elevated myocardial infarction) Current Visit: Yes Status: Acute (5) Obesity Current Visit: Yes Status: Chronic Qualifiers: Body mass index: BMI 35.0-35.9 Subjective Date of service: 06/12/21 Principal diagnosis: NSTEMI Interval history: Patient for [facility] this AM Sinus 60s with no event son monitor Objective Vital Signs Temp Pulse Resp BP BP BP Pulse Ox 06/12/21 08:00 98.2 F 74 12 128/92 94 06/12/21 04:03 20 06/12/21 03:52 98.7 F 60 18 150/82 98 06/12/21 02:00 69 06/11/21 23:37 98.4 F 69 17 162/101 97 06/11/21 22:31 77 14 160/96 100 06/11/21 22:21 74 12 178/91 100 06/11/21 22:11 97 H 17 174/96 100 06/11/21 22:07 99 H 178/91 06/11/21 22:01 62 22 174/96 98 06/11/21 22:00 100 06/11/21 21:51 62 21 157/78 98 06/11/21 21:41 61 22 178/94 98 06/11/21 21:31 62 16 157/78 96 06/11/21 21:21 57 L 20 178/94 99 06/11/21 21:10 58 L 18 178/94 99 06/11/21 21:01 77 19 178/94 98 06/11/21 20:51 59 L 19 167/94 99 06/11/21 20:41 59 L 20 167/94 97 06/11/21 20:31 68 11 L 167/94 100 06/11/21 20:21 94 H 14 160/80 99 06/11/21 20:11 94 H 19 160/80 98 06/11/21 20:01 59 L 19 160/80 98 06/11/21 20:00 99 H 16 178/91 99 06/11/21 19:51 60 19 163/103 99 06/11/21 19:41 85 11 L 163/103 100 06/11/21 19:31 61 22 161/84 98 06/11/21 19:21 98 H 19 139/73 98 06/11/21 19:11 57 L 21 139/73 100 06/11/21 19:01 61 20 163/103 98 06/11/21 18:51 59 L 16 139/73 98 06/11/21 18:41 109 H 13 139/73 100 06/11/21 18:31 57 L 12 139/73 100 06/11/21 18:21 73 20 151/70 100 06/11/21 18:11 103 H 13 151/70 100 06/11/21 18:08 98 H 16 151/70 100 06/11/21 18:01 98 H 15 156/123 100 06/11/21 17:51 58 L 12 172/93 100 06/11/21 17:41 59 L 21 172/93 97 06/11/21 17:31 59 L 21 172/93 99 06/11/21 17:21 108 H 15 173/97 99 06/11/21 17:11 61 17 173/97 100 06/11/21 17:01 76 19 173/97 99 06/11/21 16:51 60 20 149/78 99 06/11/21 16:41 57 L 18 149/78 100 06/11/21 16:31 87 11 L 149/78 100 06/11/21 16:21 62 21 160/89 97 06/11/21 16:11 59 L 17 160/89 98 06/11/21 16:01 56 L 9 L 160/89 100 06/11/21 15:51 62 18 160/89 99 06/11/21 15:41 83 14 161/77 100 06/11/21 15:31 59 L 15 161/77 99 06/11/21 15:21 92 H 15 150/79 100 06/11/21 15:11 70 16 150/79 100 06/11/21 15:01 64 16 150/79 100 06/11/21 14:51 62 17 154/92 99 06/11/21 14:41 60 20 154/92 99 06/11/21 14:31 62 22 154/92 100 06/11/21 13:31 100 H 16 157/80 100 - Physical Examination General: No Apparent Distress HEENT: Positive: EOMI, Normocephaly Neck: Positive: neck supple, trachea midline. Negative: JVD/HJR Cardiac: Positive: Reg Rate and Rhythm Lungs: Positive: Normal Breath Sounds Neuro: Positive: Grossly Intact Abdomen: Positive: Soft. Negative: Tender Skin: Negative: Rash Musculoskeletal: No Pain Extremities: Present: lower extr. pulses. Absent: edema - Labs and Meds Coagulation 06/11/21 06/12/21 Range/Units 18:03 05:12 PT 13.1 12.9 (12.2-14.9) Sec. INR 0.94 0.92 (0.87-1.13) APTT 119.2 H* (24.2-36.6) Sec. CBC 06/11/21 06/12/21 Range/Units 18:03 05:12 WBC 10.5 (4.5-11.0) K/mm3 RBC 4.63 (3.65-5.03) M/mm3 Hgb 14.5 15.0 (11.8-15.2) gm/dl Hct 43.2 44.6 (35.5-45.6) % Plt Count 310 319 (140-440) K/mm3 Lymph # (Auto) 2.8 (1.2-5.4) K/mm3 [place] # (Auto) 0.9 H (0.0-0.8) K/mm3 Eos # (Auto) 0.0 (0.0-0.4) K/mm3 Baso # (Auto) 0.0 (0.0-0.1) K/mm3 Comprehensive Metabolic Panel 06/12/21 Range/Units 05:12 Sodium 140 (137-145) mmol/L Potassium 3.5 L (3.6-5.0) mmol/L Chloride 102.4 (98-107) mmol/L Carbon Dioxide 28 (22-30) mmol/L BUN 8 L (9-20) mg/dL Creatinine 1.1 (0.8-1.3) mg/dL Glucose 112 H (75-100) mg/dL Calcium 9.7 (8.4-10.2) mg/dL - Imaging and Cardiology EKG: report reviewed, image reviewed Echo: pending - Telemetry EKG Rhythm: Sinus Rhythm - EKG Sinus rhythms and dysrhythmias: sinus rhythm Chamber hypertrophy or enlargement: left ventricular hypertro
[2021-06-12] MEDS ORDERED: HEPARIN 5,000 UNIT/1 ML VIAL SUB-Q SCH (14:00)
--- NOTE | 2021-06-12 15:17 | Discharge Summary ---
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 Chest pain associated with diaphoresis. He was seen and evaluated in ED. Initial Troponin was normal but 2nd was high. He was diagnosed with acute NSTEMI, started on Aspirin,Heparin, Beta blockers. Cardiology was consulted and evaluated patient. cardiac cath was done following day 06/12/21 showed mild coronary artery disease. cardiology then recommended discharge home on medications to follow as outpatient. NSTEMI cardiac cath revealed mild coronary artery disease Cardiology following Aspirin, Metoprolol,statin Hypertensive urgency BP improving NATACHA due to vasomotor nephropathy Now resolved Cr 1.1 today Hyperlipidemia Disposition: 01 HOME / SELF CARE / HOMELESS Final Discharge Diagnosis (Prints w/discharge instructions): 1.NSTEMI. 2.Hypertension - Discharge Diagnoses (1) NSTEMI (non-ST elevated myocardial infarction) Status: Acute (2) Chest pain Status: Acute (3) Hypertensive urgency Status: Acute (4) Obesity Status: Chronic Qualifiers: Body mass index: BMI 35.0-35.9 (5) CAD (coronary artery disease) Status: Acute Core Measure Documentation - Palliative Care Palliative Care/ Comfort Measures: Not Applicable - Core Measures Any of the following diagnoses?: acute CT - Acute CT Discharge Requirements Aspirin at discharge: Yes FATEMEH/ARB for LVSD if EF <40%: Not Applicable Beta leslie at discharge: Yes Statin for LDL = or >100 mg/dl on DC: Yes Exam - Constitutional Vitals: Temp Pulse Resp BP Pulse Ox 98.2 F 74 12 128/92 97 06/12/21 08:00 06/12/21 10:00 06/12/21 08:00 06/12/21 08:00 06/12/21 10:00 Plan Activity: other (No strenous activity until cleared by cardiology) Diet: low fat, low cholesterol, low salt Plan of Treatment: 1.Follow up with PCP in 1 week. 2.Follow up with DR. Aguilar, cardiology on 06/29/21 Follow up with: PRIMARY CARE, [Primary Care Provider] - 3-5 Days Forms: Krissy PCI D/C Instructions Prescriptions: Aspirin [Aspirin BABY CHEW TAB] 81 mg PO QDAY #30 tab.chew AtorvaSTATin [Lipitor] 80 mg PO QHS #60 tablet Metoprolol [Lopressor TAB] 50 mg PO BID #60 tablet
[2021-06-12 17:16] VITALS: BP 160/91
== END 2021-06-12 17:15 | disposition home or self-care (01) ==
LOC: ED 05:10 → 4A 10:15
PROVIDERS: ADMIT Hospitalist; ATTEND Internal Medicine
DX: I21.4 Non-ST elevation (NSTEMI) myocardial infarction (principal); I16.0 Hypertensive urgency; N17.9 Acute kidney failure, unspecified; N17.0 Acute kidney failure with tubular necrosis; E78.5 Hyperlipidemia, unspecified; R20.0 Anesthesia of skin; E66.9 Obesity, unspecified; F17.210 Nicotine dependence, cigarettes, uncomplicated; R07.89 Other chest pain; R29.700 NIHSS score 0; Z79.82 Long term (current) use of aspirin; Z68.35 Body mass index [BMI] 35.0-35.9, adult
CPT/HCPCS: 36415; 70450; 70496; 70498; 71045; 80048; 80053; 80061; 84484; 85014; 85018; 85025; 85049; 85520; 85610; 85730; 93005; 93458; 96365; 96366; 96375; 96376; 99285; A9270; C1894; G0378; J0360; J1644; J2250; J2270; J3010; J7040; Q9967